=== PATIENT | female | born 1945 | race African-American/Black ===

== ENCOUNTER 2018-10-06 14:40 | Emergency (ER) | payer MEDICARE, MEDICAID ==
[~2018-10-06] VITALS: Ht 170.2 cm; Wt 90.7 kg
[2018-10-06 15:28] VITALS: BP 175/95
== END 2018-10-06 17:10 | disposition home or self-care (01) ==
LOC: ER 14:40
DX: S32.2XXA Fracture of coccyx, initial encounter for closed fracture (principal); M48.48XA Fatigue fracture of vertebra, sacral and sacrococcygeal region, initial encounter for fracture; J45.909 Unspecified asthma, uncomplicated; I10 Essential (primary) hypertension; Z88.0 Allergy status to penicillin; X58.XXXA Exposure to other specified factors, initial encounter; Y93.89 Activity, other specified; Y92.89 Other specified places as the place of occurrence of the external cause; Y99.8 Other external cause status
CPT/HCPCS: 72220

== ENCOUNTER 2018-10-21 13:11 | Emergency (ER) | payer MEDICARE, MEDICAID ==
[~2018-10-21] VITALS: Ht 170.2 cm; Wt 90.7 kg
[2018-10-21 14:47] VITALS: BP 142/87
== END 2018-10-21 14:53 | disposition home or self-care (01) ==
LOC: ER 13:13
DX: S32.10XD Unspecified fracture of sacrum, subsequent encounter for fracture with routine healing (principal); M54.5 Low back pain; I10 Essential (primary) hypertension; J45.909 Unspecified asthma, uncomplicated; Z88.0 Allergy status to penicillin; X58.XXXD Exposure to other specified factors, subsequent encounter
CPT/HCPCS: 93005